=== PATIENT | female | born 1980 | race Two or more races ===

== ENCOUNTER 2020-11-27 08:16 | Outpatient (CLI) | payer OTHER ==
--- NOTE | 2020-11-27 11:27 | MRI Report ---
PROCEDURE: Hip LT W/O INDICATIONS: LEFT HIP PAIN TECHNIQUE: Noncontrast coronal T1 spin echo and STIR through the bony pelvis. Coronal and axial T2 fast spin ec ho with fat saturation, sagittal T1 spin echo, and oblique axial T2 fast spin echo with fat saturatio n through the hip. COMPARISON: None. FINDINGS: Image quality: Excellent. Bones and joints: Bone marrow of the pelvic ring and proximal femurs show normal signal throughout. No intraosseous lesions or fractures. No avascular necrosis of the femoral heads. Mild degenerative changes are seen at the pubic symphysis. Included lower lumbar spine is normally aligned. Tendons: The gluteus medius and minimus tendons appear intact, without associated muscle atrophy. T he iliopsoas tendon appears intact, without adjacent bursal fluid collections. The origin of the ham string tendon is intact at the ischial tuberosity. Labrum and cartilage: Mild signal irregularity is seen at the anterosuperior labrum that is suspiciou s for a small nondisplaced tear. Cartilage surface of the femoral head appears of normal thickness. The alpha angle of the femur is within normal limits at less than 55 degrees. Soft tissues: Visualized muscles demonstrate normal bulk and internal signal. The proximal sciatic neurovascular bundle appears normal adjacent to the hamstring tendons. Trace free fluid in the pelvis is likely physiologic. Bladder wall thickness is normal. Genitourinary structures and bowel loops a ppear normal where visualized. IMPRESSION: 1. Suspected small nondisplaced tear of the anterosuperior labrum. 2. Mild degenerative changes at the pubic symphysis. 3. Trace free fluid in the pelvis is most likely physiologic. Reviewed by: Angel Urban MD on 11/27/2020 10:26 AM [facility] Approved by: Angel Urban MD on 11/27/2020 10:26 AM [facility] Station ID: [id number]
== END 2020-11-27 08:17 | disposition home or self-care (01) ==
LOC: DI 08:16
PROVIDERS: ATTEND Student in an Organized Health Care Education/Training Program
DX: M19.09 Primary osteoarthritis, other specified site (principal)